=== PATIENT | female | born 1995 | race Caucasian/White ===

== ENCOUNTER 2022-04-30 16:59 | Emergency (ER) | payer OTHER ==
[~2022-04-30] VITALS: Ht 170.2 cm; Wt 76.6 kg
[2022-04-30] MEDS ORDERED: NAPR-837 PO (17:11)
[2022-04-30] MEDS ORDERED: MIRE1IUD IU (17:11)
[2022-04-30 18:41] LABS: BASO % 0.5 % (0.0-1.0); EOS # 0.1 10^3/uL (0.0-0.5); EOS % 1.6 % (0.0-3.0); HEMATOCRIT 42.7 % (36.0-47.0); HEMOGLOBIN 14.3 g/dl (12.0-15.5); LYMPH % 27.6 % (24.0-44.0); MEAN CORPUSCULAR HEMOGLOBIN 32.1 pg (27.0-33.0); MEAN CORPUSCULAR HGB CONC 33.5 g/dl (32.0-36.5); MEAN CORPUSCULAR VOLUME 95.7 fl (80.0-96.0); MONO # 0.8 10^3/uL (0.0-0.8); MONO % 10.9 % (2.0-8.0); NEUTROPHILS # 4.3 10^3/uL (1.5-8.5); PLATELET COUNT, AUTOMATED 371 10^3/uL (150-450); RED BLOOD COUNT 4.46 10^6/uL (4.00-5.40); WHITE BLOOD COUNT 7.4 10^3/uL (4.0-10.0)
[2022-04-30 19:07] LABS: BLOOD UREA NITROGEN 13 MG/DL (7-18); CALCIUM LEVEL 9.1 MG/DL (8.5-10.1); CARBON DIOXIDE LEVEL 27 MEQ/L (21-32); CHLORIDE LEVEL 102 MEQ/L (98-107); CREATININE FOR GFR 0.95 MG/DL (0.55-1.30); GLOMERULAR FILTRATION RATE > 60.0 (>60); GLUCOSE, FASTING 87 MG/DL (70-100); POTASSIUM SERUM 3.7 MEQ/L (3.5-5.1); SODIUM LEVEL 135 MEQ/L (136-145)
[2022-04-30 19:11] LABS: HCG, SERUM QUALITATIVE NEGATIVE (NEGATIVE)
[2022-04-30 20:38] VITALS: BP 127/67
== END 2022-04-30 20:39 | disposition home or self-care (01) ==
LOC: M ED 16:59
DX: N83.291 Other ovarian cyst, right side (principal); F17.200 Nicotine dependence, unspecified, uncomplicated; Z87.42 Personal history of other diseases of the female genital tract; Z79.3 Long term (current) use of hormonal contraceptives

== ENCOUNTER → 2022-05-04 | Outpatient (CLI) | payer OTHER ==
[~2022-05-04] MED LIST: ADVI200T PO; MIRE1IUD IU; NAPR-837 PO; OXYC5CAP56 PO; [UNRECOGNIZED DRUG - CODE] PO; [UNRECOGNIZED DRUG - OTHER] PO
== END ==
LOC: M LABSMTC 09:48
PROVIDERS: ATTEND Anesthesiology
DX: Z01.812 Encounter for preprocedural laboratory examination (principal); Z20.822 Contact with and (suspected) exposure to COVID-19

== ENCOUNTER 2022-05-07 11:27 | Day surgery (SDC) | payer OTHER ==
[~2022-05-07] VITALS: Ht 170.2 cm; Wt 76.7 kg
[~2022-05-07 11:27] MED LIST changes: +ACETAMINOPHEN *IV* 1,000 MG IV ONE
[2022-05-07 12:25] LABS: HEMOGLOBIN 14.5 g/dl (12.0-15.5); MEAN CORPUSCULAR HEMOGLOBIN 32.7 pg (27.0-33.0); MEAN CORPUSCULAR HGB CONC 33.7 g/dl (32.0-36.5); MEAN CORPUSCULAR VOLUME 97.1 fl (80.0-96.0); PLATELET COUNT, AUTOMATED 420 10^3/uL (150-450); RED BLOOD COUNT 4.43 10^6/uL (4.00-5.40); WHITE BLOOD COUNT 5.7 10^3/uL (4.0-10.0)
[2022-05-07] MEDS ORDERED: ROCURONIUM BROMIDE 50 MG/5 ML VIAL As Ordered ONE ×2 (13:32→15:08)
[2022-05-07] MEDS ORDERED: propofoL 200 MG/20 ML VIAL As Ordered ONE (13:32)
[2022-05-07] MEDS ORDERED: LIDOCAINE 2% 100MG/5ML SDV (FOR ANES.) As Ordered ONE (13:32)
[2022-05-07] MEDS ORDERED: MIDAZOLAM INJ 2MG/2ML VIAL (J2250 PER 1MG) As Ordered ONE (14:19)
[2022-05-07] MEDS ORDERED: fentaNYL 250 MCG/5 ML INJECTION As Ordered ONE (14:19)
[2022-05-07] MEDS ORDERED: dexameTHASONE 4 MG/ML 1ML VIAL (J1100 PER 1MG) As Ordered ONE ×2 (14:21→14:22)
[2022-05-07] MEDS ORDERED: ONDANSETRON 4MG 2ML VIAL As Ordered ONE (14:22)
[2022-05-07] MEDS ORDERED: ACETAMINOPHEN 1000MG 100ML IV BTL (OFIRMEV) (J0131 PER 10MG) As Ordered ONE (14:22)
[2022-05-07] MEDS ORDERED: BUPIVACAINE HCL 0.25% 30ML VIAL As Ordered ONE (14:32)
[2022-05-07] MEDS ORDERED: HYDROmorphone HCL 2MG/ML 1ML VIAL As Ordered ONE (15:09)
[2022-05-07] MEDS ORDERED: PHENYLephrine 500MCG 5ML (100MCG/ML) SYRINGE As Ordered ONE (15:35)
[2022-05-07] MEDS ORDERED: SUGAMMADEX SODIUM 500 MG/5 ML VIAL (BRIDION) As Ordered ONE (15:49)
[2022-05-07] MEDS ORDERED: METOCLOPRAMIDE INJ 10MG/2ML VIAL (J2765 PER 1) As Ordered ONE (15:49)
[2022-05-07] MEDS ORDERED: LR 1,000 ML IV SCH (18:35)
[2022-05-07] MEDS ORDERED: fentaNYL 100 MCG/2 ML INJECTION IV PRN (18:35)
[2022-05-07] MEDS ORDERED: ONDANSETRON 4MG 2ML VIAL IV PRN (18:35)
[2022-05-07] MEDS: oxyCODONE 5MG TAB PO PRN ×2 (18:47→19:17)
[2022-05-07] MEDS: HYDROMORPHONE HCL 0.5 MG/ 0.5 ML SYRINGE (J1170 PER 1) IV PRN ×4 (18:48→19:20)
[2022-05-07 20:18] VITALS: BP 136/63
== END 2022-05-07 20:21 | disposition home or self-care (01) ==
LOC: M SDC 11:27
PROVIDERS: ATTEND Obstetrics & Gynecology
DX: N83.201 Unspecified ovarian cyst, right side (principal); N80.9 Endometriosis, unspecified; R10.2 Pelvic and perineal pain; T83.32XA Displacement of intrauterine contraceptive device, initial encounter; N73.6 Female pelvic peritoneal adhesions (postinfective); F17.200 Nicotine dependence, unspecified, uncomplicated; Z79.899 Other long term (current) drug therapy; F41.9 Anxiety disorder, unspecified; F32.A Depression, unspecified
CPT/HCPCS: 36415; 58562; 58662; 81025; 85027; 86850; 86900; 86901; 88108; 88300; 88305; 88313; J0131; J1100; J1170; J2250; J2370; J2405; J2765; J3010

== ENCOUNTER 2022-05-13 13:51 | Emergency (ER) | payer OTHER ==
[~2022-05-13] VITALS: Ht 170.2 cm; Wt 77.9 kg
[~2022-05-13 13:51] MED LIST changes: -ACETAMINOPHEN *IV* 1,000 MG IV ONE
[2022-05-13] MEDS ORDERED: PERCOCET 5MG/325MG TAB PO ONE (15:40)
[2022-05-13] MEDS ORDERED: diphenhydrAMINE CREAM 30GM TOP STA (17:22)
[2022-05-13] MEDS ORDERED: diphenhydrAMINE 50MG CAP PO ONE (17:25)
[2022-05-13] MEDS ORDERED: LIDO2GEL26 TOP (17:36)
[2022-05-13] MEDS ORDERED: PERC5TAB12 PO (17:36)
[2022-05-13] MEDS ORDERED: BENA2CRE3 TOP (17:36)
[2022-05-13 18:07] VITALS: BP 137/65
[2022-05-13 18:08] LABS: GC DNA AMPLIFICATION NEGATIVE (NEGATIVE)
== END 2022-05-13 18:35 | disposition home or self-care (01) ==
LOC: M ED 13:51
DX: N76.89 Other specified inflammation of vagina and vulva (principal); G89.18 Other acute postprocedural pain; Z87.42 Personal history of other diseases of the female genital tract; Z79.899 Other long term (current) drug therapy